=== PATIENT | male | born 1975 | race Two or more races ===

== ENCOUNTER 2019-09-11 17:20 | Emergency (ER) | payer OTHER ==
[~2019-09-11] VITALS: Ht 172.7 cm; Wt 81.6 kg
[2019-09-11] MEDS ORDERED: LIDOCAINE20 MG/1 M2 (17:36)
[2019-09-11] MEDS ORDERED: [UNRECOGNIZED DRUG - OTHER] (17:37)
== END 2019-09-11 19:24 | disposition home or self-care (01) ==
LOC: ER 17:20
DX: K64.4 Residual hemorrhoidal skin tags (principal)